=== PATIENT | male | born 2000 | race African-American/Black ===

== ENCOUNTER 2019-03-18 02:03 | Emergency (ER) | payer MEDICAID ==
[~2019-03-18] VITALS: Ht 170.2 cm; Wt 77.0 kg
[2019-03-18] MEDS ORDERED: AZITHROMYCIN 500 MG TABLET PO ONE (03:45)
[2019-03-18] MEDS ORDERED: CEFTRIAXONE SODIUM 250 MG/VIAL IM ONE (03:45)
[2019-03-18 05:01] LABS: CLARITY URINE CLEAR (CLEAR); COLOR URINE DARK YELLOW (YELLOW); KETONES URINE TRACE (NEGATIVE); LEUKOCYTE ESTERASE URINE NEGATIVE (NEGATIVE); NITRITE URINE NEGATIVE (NEGATIVE); OCCULT BLOOD URINE NEGATIVE (NEGATIVE); PROTEIN URINE TRACE (NEGATIVE); SPECIFIC GRAVITY URINE 1.021 (1.005-1.030); UROBILINOGEN URINE 0.2 E.U./dL (0.2-1.0)
[2019-03-18 05:39] LABS: METHADONE URINE SCREEN NEGATIVE (NEGATIVE); OPIATES URINE SCREEN NEGATIVE (NEGATIVE)
[2019-03-18 05:40] LABS: *AMPHETAMINES SCREEN URINE NEGATIVE (NEGATIVE); *BARBITURATES SCREEN URINE NEGATIVE (NEGATIVE); *BENZODIAZEPINES SCREEN URINE NEGATIVE (NEGATIVE); *COCAINE SCREEN URINE NEGATIVE (NEGATIVE); CANNABINOID URINE SCREEN PRESUMTIVE POSITIVE (NEGATIVE); PHENCYCLIDINE URINE SCREEN NEGATIVE (NEGATIVE)
[2019-03-18 09:00] VITALS: BP 115/71
[2019-03-20 04:08] LABS: NEISSERIA GONORRHOEAE NAA Negative (Negative)
== END 2019-03-18 10:45 | disposition home or self-care (01) ==
LOC: ER 02:03
DX: Z04.89 Encounter for examination and observation for other specified reasons (principal); Z59.0 Homelessness
CPT/HCPCS: 80305; 81003; 87491; 87591; 96372; 99283; J0696